=== PATIENT | male | born 1985 ===

== ENCOUNTER 2017-03-03 13:16 | Outpatient (CLI) | payer OTHER ==
[2017-03-03] MEDS ORDERED: BUFFERED LIDOCAINE 10 ML SYRINGE IU ONE (14:15)
[2017-03-03] MEDS ORDERED: LIDOCAINE-MPF 1% 5 ML VIAL SUBQ ONE (14:15)
[2017-03-03] MEDS ORDERED: IOTHALAMATE MEGLUMINE 50 ML VIAL IVP ONE (14:15)
[2017-03-03] MEDS ORDERED: GADOPENTETATE DIMEGLUMINE 5 ML VIAL IVP ONE (14:15)
== END 2017-03-03 13:17 | disposition home or self-care (01) ==
DX: S43.431A Superior glenoid labrum lesion of right shoulder, initial encounter (principal); M67.411 Ganglion, right shoulder
CPT/HCPCS: 23350; 73222; 77002; Q9961